=== PATIENT | female | born 1965 | race Caucasian/White ===

== ENCOUNTER 2019-01-26 08:59 | Day surgery (SDC) | payer BC, OTHER ==
[2019-01-26] VITALS (23 sets, daily range): BP systolic 95–207; BP diastolic 54–105; PULSE 62–112; RESP 16–32; Ht 160 cm; Wt 110.0 kg
[~2019-01-26] VITALS: Ht 160 cm; Wt 110.0 kg
[~2019-01-26 08:59] MED LIST: CEFAZOLIN 2 GM/50 ML (PMX) 50 ML IVPB SCH; SOD CHLORIDE 0.9% 1,000 ML IV SCH
[2019-01-26] MEDS ORDERED: OMEG-135 PO (10:09)
[2019-01-26] MEDS ORDERED: BUPIVACAINE 0.25% (MPF) 30 ML INJ ONE (13:40)
[2019-01-26] MEDS ORDERED: POLYMYXIN/BACITRACIN 1L IRRIG ONE (13:40)
--- NOTE | 2019-01-26 13:57 | PREAC ---
Date/Time of Note Date/Time of Note DATE: 01/26/19 TIME: 13:55 Anesthesia Eval and Record Evaluation Time Pre-Procedure Interview DATE: 01/26/19 TIME: 13:55 Age 53 Sex female NPO: 8 hrs Preoperative diagnosis Ventral hernia Planned procedure Ventral hernia repair Past Medical History Past Medical History: Includes Pulm: Sleep Apnea GI: Morbid obesity Surgery & Anesthesia Issues No known issue Meds Anticoagulation: No Beta Ember within 24 hr: No Reason Beta Ember not given: Pt. not on B-Ember Reported Medications [place]-3 Fatty Acids/Fish Oil (Fish Oil 1,000 mg Capsule) 1 Each Capsule, 1 CAP PO BID, CAP 01/26/19 Current Medications Sodium Chloride 1,000 ml @ 75 mls/hr [id number] IV Last administered on 01/26/19at 10:41; Admin Dose 75 MLS/HR; Start 01/26/19 at 06:00; Stop 01/26/19 at 19:19 Cefazolin Sodium/ Dextrose 50 ml @ 100 mls/hr PREOP IVPB ; Start 01/26/19 at 06:00; Stop 01/26/19 at 19:00 Meds reviewed: Yes Allergies Coded Allergies: No Known Allergy (Unverified , 01/25/19) Allergies Reviewed: Yes Labs/Studies Labs Reviewed: Reviewed by anesthesiologist test: Negative Studies: ECG Pre-procedure Exam Last vitals Vital Signs Date Temp Pulse Resp B/P (MAP) Pulse Ox O2 O2 Flow FiO2 Time Delivery Rate 01/26/19 97.0 74 16 167/74 95 Room Air 10:52 (105) Airway: Adequate mouth opening, Adequate thyromental dist Mallampati: Mallampati III Teeth: Normal Lung: Normal Heart: Normal ASA Physical Status ASA physical status: 3 Emergency: None Planned Anesthetic General/MAC: ETT Planned Pain Management Parenteral pain med, Local by surgeon Pre-operative Attestations Prior to commencing anesthesia and surgery, the patient was re-evaluated, there was verification of: *The patient's identity *The results of appropriate recent lab work and preoperative vital signs *The above evaluation not changing prior to induction *Anesthetic plan, risk benefits, alternative and complications discussed with patient/family; questions answered; patient/family understands, accepts and wishes to proceed. SUMMER VUONG MD Jan 26, 2019 13:57
[2019-01-26] MEDS ORDERED: MIDAZOLAM 1 MG/ML 2 ML INJ ONE (14:02)
[2019-01-26] MEDS: SOD CHLORIDE 0.9% 1,000 ML IV SCH ×2 (15:16→17:23)
[2019-01-26] MEDS ORDERED: PROPOFOL 20 ML ONE (15:20)
[2019-01-26] MEDS ORDERED: CEFAZOLIN 1 GM INJ ONE (15:20)
[2019-01-26] MEDS ORDERED: NEOSTIGMINE 3 MG/3 ML SYRINGE ONE (15:20)
[2019-01-26] MEDS ORDERED: LIDOCAINE 2% (SDV) 5 ML INJ ONE (15:20)
[2019-01-26] MEDS ORDERED: ROCURONIUM 50 MG INJ ONE (15:20)
[2019-01-26] MEDS ORDERED: GLYCOPYRROLATE 0.4 MG INJ ONE (15:20)
[2019-01-26] MEDS ORDERED: ONDANSETRON 4 MG INJ ONE (15:20)
[2019-01-26] MEDS ORDERED: NALOXONE (0.4 MG/ML) INJ IV PRN (15:30)
[2019-01-26] MEDS ORDERED: morphine 2 MG INJ IV PRN (15:30)
[2019-01-26] MEDS: CEFAZOLIN 2 GM/50 ML (PMX) 50 ML IVPB SCH ×2 (15:30→23:32)
[2019-01-26] MEDS ORDERED: HYDROmorphONE 0.2 MG/ML PCA IV SCH (15:30)
--- NOTE | 2019-01-26 15:31 | OPR ---
Date/Time of Note Date/Time of Note DATE: 01/26/19 TIME: 15:21 Operative Report Procedure Date: Jan 26, 2019 Preoperative Diagnosis abdominal wall defect, incarcerated incisional hernia, incarcerated umbilical hernia Postoperative Diagnosis same Operation/Procedure Performed 1. right rectus musculocutaneous flap cpt code 41578 2. left rectus musculocutaneous flap cpt code 36660 3. open repair of incarcerated incisional hernia cpt code 96032 4. implantation of prolene mesh 15 x 15 cm cpt code 67474 5. open repair of umbilical incarcerated hernia cpt code 6. open lysis of adhesions 7. localized adjacent tissue transfer with the use of skin flaps 88 sq cm defect of the abdomen 8. therapeutic injection of subcutaneous local anesthesia Surgeon see signature line Lead Housekeeper Nabor Snider Anesthesia Type: general Estimated Blood Loss: 10 - 50 ml's Transfusion none Specimen none Grafts/Implants none Complications none Pt Condition Post Procedure: stable Indications This is a 53-year-old female with symptomatic and very large abdominal defect an d an incarcerated incisional hernia and an incarcerated umbilical hernia. She had surgery before resulting incisional hernia. She is morbidly obese with a BMI of 43. She underwent a. Time to attempt weight loss. She was noncompliant was unable to lose any weight however due to the pain and symptoms she requests surgical repair. Due to her morbid obesity patient was warned of her increased perioperative and postoperative risks. Potential complications including but not limited to bleeding infection mesh migration recurrence of hernia pain chronic pain and need for additional operations were discussed the patient. Patient expressed understanding and consents to the operation. Procedure Description Patient is taken to the OR and prepped and draped in usual sterile fashion. Surgical time was performed. IV antibiotics given. Generous midline incision was made from the subxiphoid area all the way down to the inferior aspect the periumbilical region. Dissection with cautery could onto the midline to the decussation of the rectus sheath. This was then opened in the midline and extended superiorly and inferiorly. An incarcerated incisional hernia was encountered in the midline. S adhesions performed in this hernia is then manually reduced. An additional umbilical hernia was then identified. This was also incarcerated and lysis of adhesions was performed prior to full reduction of the hernia. The fascial edges are developed. The left rectus muscular fascial flap was then developed. The anterior and posterior rectus sheath was divided with cautery and taken superiorly and inferiorly in the retrorectus space. This potential space was then developed. The right muscular fascial flap was also developed. The fascial edges were freshened and the anterior and posterior rectus sheath on the right side is also divided with cautery developing the potential space of the retrorectus space. The posterior rectus sheath is then closed primarily using #1 loop PDS from inferior to superior superior inferior and tied in the middle. Good hemostasis established in this layer. 15 x 15 cm Prolene mesh was then secured in place with multiple #1 Prolene interrupted sutures and affixed to the anterior rectus sheath in the retrorectus space. Again hemostasis established. The anterior rectus sheath is then closed primarily times closing both the incisional incarcerated hernia and the umbilical incarcerated hernia by running the #1 loop PDS sutures from inferior superior superior inferior and tied in the middle. Due to the large tissue defect localization to his transfer with these of skin flaps was performed. The right and left skin flaps were developed and reapproximated with interrupted 3-0 Vicryl. Skin was then closed and skin laron. Therapeutic contains local anesthesia was injected at the incision site. Dry dressings were applied. Franklyn VALERIO Jan 26, 2019 15:31
--- NOTE | 2019-01-26 15:41 | PAC ---
Date/Time of Note Date/Time of Note DATE: 01/26/19 TIME: 15:40 Post-Anesthesia Notes Post-Anesthesia Note Last documented vital signs Vital Signs Date Temp Pulse Resp B/P (MAP) Pulse Ox O2 O2 Flow FiO2 Time Delivery Rate 01/26/19 97.0 74 16 167/74 95 Room Air 10:52 (105) Activity: WNL Respiratory function: WNL Cardiovascular function: WNL Mental status: Baseline Pain reasonably controlled: Yes Hydration appropriate: Yes Nausea/Vomiting absent: Yes Comments BP:154/78, P:92, Spo2:98%, T:98,8 SUMMER VUONG MD Jan 26, 2019 15:41
[2019-01-26] MEDS ORDERED: ONDANSETRON 4 MG INJ IV PRN ×2 (16:00→19:30)
[2019-01-26] MEDS ORDERED: ALBUTEROL 0.083% (NEB) 2.5 MG/3 ML AMP HHN PRN (16:00)
[2019-01-26] MEDS ORDERED: METOCLOPRAMIDE 10 MG INJ IV PRN (16:00)
[2019-01-26] MEDS ORDERED: FENTAnyl 50 MCG/ML VIAL IV PRN (16:00)
[2019-01-26] MEDS ORDERED: MEPERIDINE 25 MG INJ IV PRN (16:00)
[2019-01-26] MEDS ORDERED: hydrALAzine 20 MG INJ IV PRN (16:00)
[2019-01-26] MEDS ORDERED: LABETALOL HCL 20MG INJ IV PRN (16:00)
[2019-01-26] MEDS ORDERED: DIPHENHYDRAMINE 50 MG INJ IV PRN (16:00)
[2019-01-26] MEDS ORDERED: HYDROmorphONE 1 MG/5 ML IV SYRINGE IV PRN ×2 (16:00)
[2019-01-27 02:33] VITALS: BP 107/58; PULSE 73; RESP 18
[2019-01-27] MEDS: SOD CHLORIDE 0.9% 1,000 ML IV SCH ×2 (03:19→14:21)
[2019-01-27 07:38] VITALS: BP 122/56; PULSE 66; RESP 20
[2019-01-27] MEDS: CEFAZOLIN 2 GM/50 ML (PMX) 50 ML IVPB SCH (09:32)
[2019-01-27 13:00] VITALS: BP 120/60; PULSE 68; RESP 18
--- NOTE | 2019-01-27 13:34 | PN ---
DATE: 01/27/2019 Postop day #1 status post abdominal operation for ventral incisional hernia utilizing component separation technique. SUBJECTIVE: Has some incisional pain. No nausea, no vomiting. Has tolerated liquid diet. Has not been out of bed to walk around. No bowel movement. No flatus. The patient is on SHIFT SUPERINTENDENT CAUSTIC CRESYLATE Dilaudid. OBJECTIVE: GENERAL: Awake, alert, oriented. VITAL SIGNS: Temperature maximum 99.1, heart rate 73, respirations 20, blood pressure 122/56, saturation 98% on 2 liters nasal cannula. LABORATORY DATA: WBC 14,000 with 85% segmented, shift to the left, hemoglobin 12.3, hematocrit 38.3. Chemistry: Sodium, potassium, BUN, creatinine within normal limits. CLINICAL PHYSICAL EXAMINATION: HEART: Regular. LUNGS: Decreased breathing sound. GENERAL: BMI is 43 (kilograms per square meter). ABDOMEN: Protruded with fat. Abdominal binder is wrapped around. Bowel sounds are hypoactive. ASSESSMENT: A 53-year-old obese patient is status post abdominal operation for hernia repair with component separation technique and mesh implantation. The patient grossly is not in acute distress, but has not had any bowel movement or passing gas, has not been eating that much. PLAN: I prefer to keep the patient at least 1 more day to make sure that she is walking around and she passes gas or has a bowel movement. Dictated By: MANJIT PARDO MD PS/NTS Conf#: [id number] DID#: [id number] MTDD
--- NOTE | 2019-01-27 13:45 | HP ---
Date/Time of Note Date/Time of Note DATE: 01/27/19 TIME: 13:12 Assessment/Plan VTE Prophylaxis Risk score (from [facility])>0 risk: 6 SCD applied (from [facility]): Yes SCD contraindicated: other Pharmacological prophylaxis: other Pharm contraindication: other Lines/Catheters IV Catheter Type (from [facility]): Peripheral IV Assessment/Plan Assessment/Plan -abdominal wall defect, incarcerated incisional hernia, incarcerated umbilical hernia -SP open repair of incarcerated incisional hernia - admit to med surg - per general sx - per general surgery - Morbid Obesity - weight management - Pre DM - Glycemic control - Hyperlipidemia - SCDs Result Diagram: 01/27/19 0501/27/19 05 Results 24hrs Laboratory Tests Test 01/26/19 15:38 01/27/19 05:26 White Blood Count 15.4 H 14.0 H Red Blood Count 4.79 4.28 Hemoglobin 13.7 12.3 Hematocrit 41.9 38.3 Mean Corpuscular Volume 87.5 89.5 Mean Corpuscular Hemoglobin 28.6 L 28.7 L Mean Corpuscular Hemoglobin Concent 32.7 32.1 Red Cell Distribution Width 12.3 12.4 Platelet Count 220 172 # Mean Platelet Volume 11.5 H 11.5 H Immature Granulocytes % 1.400 H 0.400 Neutrophils % 65.4 85.0 H Lymphocytes % 28.0 9.5 L Monocytes % 4.2 4.8 Eosinophils % 0.7 0.1 Basophils % 0.3 0.2 Nucleated Red Blood Cells % 0.0 0.0 Immature Granulocytes # 0.220 H 0.060 H Neutrophils # 10.1 H 11.9 H Lymphocytes # 4.3 H 1.3 Monocytes # 0.7 0.7 Eosinophils # 0.1 0.0 Basophils # 0.1 0.0 Nucleated Red Blood Cells # 0.0 0.0 Sodium Level 140 141 Potassium Level 3.7 3.9 Chloride Level 108 106 Carbon Dioxide Level 22 24 Anion Gap 10 11 Blood Urea Nitrogen 11 9 Creatinine 0.55 0.70 Est Glomerular Filtrat Rate mL/min > 60 > 60 Glucose Level 138 116 Calcium Level 8.1 L 7.7 L Total Bilirubin 0.4 0.7 Direct Bilirubin 0.00 0.00 Indirect Bilirubin 0.4 0.7 Aspartate Amino Transf (AST/SGOT) 24 23 Alanine Aminotransferase (ALT/SGPT) 22 14 Alkaline Phosphatase 83 57 Total Protein 7.2 6.5 Albumin 4.0 3.6 Globulin 3.20 2.90 Albumin/Globulin Ratio 1.25 1.24 HPI/ROS Admit Date/Time Admit Date/Time Hx of Present Illness This is a 53-year-old female with symptomatic and very large abdominal defect and an incarcerated incisional hernia and an incarcerated umbilical hernia. She had surgery before resulting incisional hernia. PMH/Family/Social Past Medical History Pre DM Hyperlipidemia Medications Current Medications Cefazolin Sodium/ Dextrose 50 ml @ 100 mls/hr Q8H IVPB Last administered on 01/27/19at 09:32; Admin Dose 100 MLS/HR; Start 01/26/19 at 15:30; Stop 01/27/19 at 15:29 Morphine Sulfate (morphine) 2 mg Q2H PRN IV PAIN LEVEL 6-10; Start 01/26/19 at 15:30 Acetaminophen/ Hydrocodone Bitart ([place] (5/325)) 1 tab Q6H PRN PO PAIN LEVEL 6-10; Start 01/26/19 at 15:30 Sodium Chloride 1,000 ml @ 100 mls/hr Q10H IV Last administered on 01/27/19at 03:19; Admin Dose 100 MLS/HR; Start 01/26/19 at 15:16 Naloxone HCl (Narcan) 0.2 mg Q2M PRN IV RR 8 BREATHS/MIN OR LESS; Start 01/26/19 at 15:30 Hydromorphone HCl (Dilaudid GUIDE DOG MOBILITY INSTRUCTOR) Q4PCA IV Last administered on 01/26/19at 15:55; Admin Dose 6 MG; Start 01/26/19 at 15:30 Ondansetron HCl (Zofran Inj) 4 mg Q6H PRN IV NAUSEA AND/OR VOMITING Last administered on 01/26/19at 19:27; Admin Dose 4 MG; Start 01/26/19 at 19:30 Coded Allergies: No Known Allergy (Unverified , 01/25/19) Past Surgical History Past Surgical Hx: other Social History Smoking Status: Never smoker Exam/Review of Systems Vital Signs Vitals Vital Signs Date Temp Pulse Resp B/P (MAP) Pulse Ox O2 O2 Flow FiO2 Time Delivery Rate 01/27/19 17 09:00 01/27/19 Nasal 2.0 08:00 Cannula 01/27/19 99.1 66 122/56 98 07:38 (78) Intake and Output 01/26/19 01/26/19 01/27/19 1515:00 23:00 07:00 IntakeIntake Total 800 ml 1586 ml OutputOutput Total 20 ml BalanceBalance 800 ml -20 ml 1586 ml Exam Constitutional: alert, oriented, well developed Psych: nl mood/affect Eyes: nl lids, nl sclera ENMT: nl external ears & nose Neck: non-tender Respiratory: diminished breath sounds Cardiovascular: nl pulses, other Gastrointestinal: soft, other Musculoskeletal: nl extremities to inspection DONNELL WARREN Jan 27, 2019 13:23
[2019-01-27 14:15] VITALS: BP 124/67; PULSE 67; RESP 20
[2019-01-27] MEDS: HYDROCODONE/APAP (5/325) TAB PO PRN ×2 (16:38→23:02)
[2019-01-27 19:33] VITALS: BP 121/64; PULSE 77; RESP 18
[2019-01-27] MEDS: FISH OIL 1,000 MG CAP PO SCH (21:38)
[2019-01-28] MEDS: SOD CHLORIDE 0.9% 1,000 ML IV SCH ×2 (00:31→07:16)
[2019-01-28 02:17] VITALS: BP 112/53; PULSE 79; RESP 18
[2019-01-28 07:36] VITALS: BP 135/76; PULSE 79; RESP 20
[2019-01-28] MEDS: FISH OIL 1,000 MG CAP PO SCH (08:20)
[2019-01-28] MEDS: HYDROCODONE/APAP (5/325) TAB PO PRN (09:17)
--- NOTE | 2019-01-28 09:22 | PDOCDIS ---
Discharge Instructions CONDITION [id number] Patient Condition: [id number] Stable HOME CARE INSTRUCTIONS: [id number] Diet Instructions: [id number] ACTIVITY: [id number] Activity Restrictions: [id number] Slowly Increase Activity Rest between Activity Avoid heavy lifting Do not Drive Do not operate Machinery Do not operate Power Tool [id number] Bathing Restrictions: [id number] Sponge Bath FOLLOW UP/APPOINTMENTS Follow-up Plan - FU with Primary x 1 week - FU with general surgery as recommended - Call 911 or go to the nearest ER if symptoms get worse-patient verbalized DW STAFF - DONNELL WARREN Jan 28, 2019 09:22
[2019-01-28] MEDS ORDERED: HYDR-3601 PO (09:24)
[2019-01-28] MEDS ORDERED: DOCU-144 PO (09:24)
--- NOTE | 2019-01-28 09:26 | DS ---
Date/Time of Note Date/Time of Note DATE: 01/28/19 TIME: 09:25 Discharge Summary Admission/Discharge Info Admit Date/Time Discharge Date/Time Patient Condition: Stable Hx of Present Illness This is a 53-year-old female with symptomatic and very large abdominal defect and an incarcerated incisional hernia and an incarcerated umbilical hernia. She had surgery before resulting incisional hernia. Home Meds Active Scripts Docusate Sodium* (Colace*) 100 Mg Capsule, 100 MG PO BID, #30 CAP Prov:DONNELL WARREN 01/28/19 Hydrocodone Bit-Acetaminophen (Hydrocodone Bit-APAP) 5-325MG Tablet, 1 TAB PO Q6H PRN for PAIN LEVEL 6-10, #10 TAB Prov:DONNELL WARREN 01/28/19 Reported Medications [place]-3 Fatty Acids/Fish Oil (Fish Oil 1,000 mg Capsule) 1 Each Capsule, 1 CAP PO BID, CAP 01/26/19 Follow-up Plan - FU with Primary x 1 week - FU with general surgery as recommended - Call 911 or go to the nearest ER if symptoms get worse-patient verbalized DW STAFF - Primary Care Provider Not On Staff Doctor Time spent on discharge: < 30 minutes Pending Labs Laboratory Tests Test 01/28/19 05:34 White Blood Count 10.1 10^3/ul (4.8-10.8) Red Blood Count 4.07 10^6/ul (4.20-5.40) Hemoglobin 11.7 g/dl (12.0-16.0) Hematocrit 36.6 % (37.0-47.0) Mean Corpuscular Volume 89.9 fl (82.0-101.0) Mean Corpuscular Hemoglobin 28.7 pg (29.0-33.0) Mean Corpuscular Hemoglobin Concent 32.0 g/dl (32.0-37.0) Red Cell Distribution Width 12.5 % (11.5-14.5) Platelet Count 167 10^3/UL (140-415) Mean Platelet Volume 11.5 fl (7.4-10.4) Immature Granulocytes % 0.500 % (0.001-0.429) Neutrophils % 77.7 % (39.0-77.0) Lymphocytes % 14.7 % (15.0-51.0) Monocytes % 5.9 % (0.0-11.0) Eosinophils % 1.0 % (0.0-7.0) Basophils % 0.2 % (0.0-2.0) Nucleated Red Blood Cells % 0.0 /100WBC (0.0-0.0) Immature Granulocytes # 0.050 10^3/ul (0.0-0.031) Neutrophils # 7.9 10^3/ul (1.6-7.5) Lymphocytes # 1.5 10^3/ul (0.8-2.9) Monocytes # 0.6 10^3/ul (0.3-0.9) Eosinophils # 0.1 10^3/ul (0.0-0.5) Basophils # 0.0 10^3/ul (0.0-0.1) Nucleated Red Blood Cells # 0.0 10^3/ul (0.0-0.0) Sodium Level 143 mmol/L (135-144) Potassium Level 4.1 mmol/L (3.5-5.1) Chloride Level 106 mmol/L (97-110) Carbon Dioxide Level 29 mmol/L (21-31) Anion Gap 8 (5-13) Blood Urea Nitrogen 7 mg/dl (7-20) Creatinine 0.64 mg/dl (0.44-1.00) Est Glomerular Filtrat Rate mL/min > 60 mL/min (>60) Glucose Level 120 mg/dl (70-220) Calcium Level 8.3 mg/dl (8.4-10.2) Triglycerides Level 240 mg/dl (0-149) Cholesterol Level 165 mg/dl (100-200) LDL Cholesterol, Calculated 91 mg/dl HDL Cholesterol 26 mg/dl (37-92) Cholesterol/HDL Ratio 6.3 RATIO DONNELL AWRREN Jan 28, 2019 09:26
--- NOTE | 2019-01-28 12:56 | PN ---
DATE: 01/28/2019 Postop day #2 status post repair of the ventral hernia utilizing component separation technique with mesh. SUBJECTIVE: No complaint. OBJECTIVE: VITAL SIGNS: Temperature today at 2:00 a.m. was 99.6, but at 7:30 a.m., it is 98.6, heart rate 79, r espirations 20, blood pressure 135/76, saturation 95% room air. The patient has been out of bed, wal angelita around, going to the bathroom, has passed a small amount of gas, but no bowel movement yet. Lesly erating diet. No nausea, no vomiting. Alert, awake, oriented. HEART: Regular. LUNGS: Clear. ABDOMEN: Soft. Dressing is intact. Bowel sounds are present. EXTREMITIES: Legs: No calf tenderness. ASSESSMENT: Postop day 2 repair of the ventral hernia. The patient is stable and wants to go home a nd we are going to discharge the patient today to be followed later on by Dr. Morfin in his office. The patient was advised not to lift heavy objects more than 10 pounds at least for 3 months. Prescripti on for pain medication will be given. Dictated By: MANJIT PARDO MD PS/NTS Conf#: [id number] DID#: [id number] CC: SKYLER MORFIN MD; DEEPTHI GUTIERREZ MD;*End*
== END 2019-01-28 12:58 | disposition home or self-care (01) ==
LOC: SDS 08:59 → 2NE 15:20 → SDS 01-28 12:58
PROVIDERS: ATTEND Surgery
DX: K43.0 Incisional hernia with obstruction, without gangrene (principal); K42.0 Umbilical hernia with obstruction, without gangrene; E66.01 Morbid (severe) obesity due to excess calories; Z68.41 Body mass index [BMI] 40.0-44.9, adult
CPT/HCPCS: 15734; 49561; 49568; 80048; 80053; 80061; 84703; 85025; J0690; J1170; J2250; J2405; J2710; J3010; J7030; Z7512; Z7610